=== PATIENT | male | born 1985 | race Caucasian/White ===

== ENCOUNTER 2021-09-26 14:40 | Emergency (ER) | payer SELFPAY ==
[~2021-09-26] VITALS: Ht 165.1 cm; Wt 91.0 kg
[2021-09-26 14:51] VITALS: BP 138/92
[2021-09-26] MEDS ORDERED: BACITRACIN ZINC OINT UDPKT TOP ONE (15:45)
[2021-09-26] MEDS ORDERED: LIDOCAINE HCL/PF 1% 10 MG/ML 5ML VIAL INFIL ONE (15:45)
[2021-09-26] MEDS ORDERED: T3 PO (15:57)
[2021-09-26] MEDS ORDERED: SULF1TAB48 MT (15:57)
== END 2021-09-26 16:21 | disposition home or self-care (01) ==
LOC: ER 14:40
DX: L02.416 Cutaneous abscess of left lower limb (principal); L03.116 Cellulitis of left lower limb; R00.0 Tachycardia, unspecified; R03.0 Elevated blood-pressure reading, without diagnosis of hypertension
CPT/HCPCS: 10060; 99284

== ENCOUNTER 2024-07-17 15:40 | Emergency (ER) | payer SELFPAY ==
[~2024-07-17] VITALS: Ht 165.1 cm; Wt 90.7 kg
[~2024-07-17 15:40] MED LIST: SULF1TAB48 MT; T3 PO
[2024-07-17 15:47] VITALS: O2SAT 100
[2024-07-17] MEDS: ACETAMINOPHEN 325MG TABLET PO ONE (18:07)
[2024-07-17] MEDS: KETOROLAC 30MG/ML VIAL IM ONE (18:07)
[2024-07-17] MEDS ORDERED: AMOX1TAB16 MT (19:00)
[2024-07-17] MEDS ORDERED: NAPR-679 MT (19:00)
[2024-07-17] MEDS ORDERED: ACET-2708 MT (19:00)
[2024-07-17 19:23] VITALS: BP 150/90; PULSE 90; RESP 14; TEMP 37.1; O2SAT 100
== END 2024-07-17 19:24 ==
LOC: ER 15:40
DX: K04.7 Periapical abscess without sinus (principal); F10.90 Alcohol use, unspecified, uncomplicated; Z79.1 Long term (current) use of non-steroidal anti-inflammatories (NSAID); Y90.9 Presence of alcohol in blood, level not specified
CPT/HCPCS: 99283; 96372; J1885